=== PATIENT | male | born 1945 | race Caucasian/White ===

== ENCOUNTER 2025-08-13 09:25 | Outpatient (CLI) | payer OTHER ==
[2025-08-13 09:53] LABS: Glucose, Urine (Dipstick) Negative (Negative); Leukocyte Negative (Negative); Protein, Urine (Dipstick) Negative (Neg-Trace); Specific Gravity, Urine 1.025 (1.005-1.030)
[2025-08-13 09:57] LABS: #Basophils 0.2 thou/uL (0.0-0.2); #Eosinophils 0.3 thou/uL (0.0-0.7); #Lymphocytes 2.3 thou/uL (1.20-3.40); #Monocytes 0.7 thou/uL (0.11-0.59); #Neutrophils 4.5 thou/uL (1.40-6.50); %Basophils 2.0 % (0.0-1.0); %Eosinophils 3.6 % (0.0-10.0); %Lymphocytes 29.0 % (21.0-51.0); %Monocytes 8.6 % (0.0-10.0); %Neutrophils 56.8 % (42.0-75.0); Hematocrit 48.1 % (42.0-52.0); Hemoglobin 16.2 g/dL (14.0-18.0); Mean Corpuscular Hemoglobin 31.7 pg (27.0-31.0); Mean Corpuscular Volume 94.2 fl (78.0-98.0); Platelet Count 206 10x3/uL (130-400); Red Blood Cell (RBC) Count 5.11 mill/uL (4.70-6.10); White Blood Cell (WBC) Count 8.0 10x3/uL (4.8-10.8)
[2025-08-13 10:03] LABS: RBC/HPF 0-3 HPF (0-3)
[2025-08-13 10:04] LABS: Bacteria/HPF Rare-Few HPF (None Seen); WBC/HPF 0-3 HPF (0-3)
[2025-08-13 10:15] LABS: ALT (SGPT) 28 U/L (Less than 45); AST (SGOT) 28 U/L (11-34); Albumin 4.3 g/dL (3.1-4.5); Alkaline Phosphatase 59 U/L (40-110); Anion Gap 16 mmol/L (10-20); BUN (Urea Nitrogen) 26 mg/dL (8.4-25.7); Bilirubin, Total 0.7 mg/dL (0.3-1.2); Calc. Creatinine Clearance 0 mL/min (70-130); Calcium 9.7 mg/dL (7.8-10.44); Carbon Dioxide 25 mmol/L (23-31); Cardiac Risk 3.7 (Less than 4.5); Chloride 106 mmol/L (98-107); Cholesterol 156 mg/dl (< 200 Desired); Globulin 2.9 g/dL (2.4-3.5); Glucose 111 mg/dL (83-110); HDL Cholesterol 42 mg/dL (>60 Neg Risk); LDL Cholesterol, Calculated 78 mg/dL; Potassium 4.5 mmol/L (3.5-5.1); Sodium 142 mmol/L (136-145); Triglycerides 179 mg/dL (Less than 150); Uric Acid 6.8 mg/dL (3.7-7.7)
[2025-08-13 10:34] LABS: Thyroid Stimulating Hormone 5.8143 uIU/mL (0.35-4.94)
[2025-08-13 17:19] LABS: Vitamin D, 25 Hydroxy 40.5 ng/ml (> 30.0)
== END 2025-08-13 09:26 | disposition home or self-care (01) ==
LOC: MADLAB 09:25
PROVIDERS: ATTEND Family Medicine
DX: M1A.9XX0 Chronic gout, unspecified, without tophus (tophi) (principal); E55.9 Vitamin D deficiency, unspecified; Z79.899 Other long term (current) drug therapy
CPT/HCPCS: 36415; 80053; 80061; 81001; 82306; 84443; 84550; 85025